=== PATIENT | male | born 1965 | race African-American/Black ===

== ENCOUNTER 2017-07-23 06:04 | Emergency (ER) | payer OTHER ==
[~2017-07-23] VITALS: Ht 180.3 cm; Wt 149.7 kg
[2017-07-23 06:08] VITALS: Ht 180.3 cm; Wt 149.7 kg
[2017-07-23] MEDS ORDERED: B/P PILL (06:10)
[2017-07-23] MEDS ORDERED: FLUID PILL (06:10)
[2017-07-23] MEDS ORDERED: CHOLESTEROL PILL (06:10)
[2017-07-23] MEDS ORDERED: KEFLEX500 MG PO (06:55)
[2017-07-23] MEDS ORDERED: IBUPROFEN800 MG PO (06:55)
[2017-07-23] MEDS ORDERED: BACTRIM DS TABL1 TAB PO (06:55)
[2017-07-23] MEDS ORDERED: ACETAMINOPHEN500 M1 PO (06:55)
[2017-07-23] MEDS ORDERED: FLORASTOR250 MG PO (06:55)
[2017-07-23 07:09] VITALS: BP 155/80
== END 2017-07-23 07:09 | disposition home or self-care (01) ==
LOC: D.ER 06:04
DX: K13.0 Diseases of lips (principal); I10 Essential (primary) hypertension; F17.200 Nicotine dependence, unspecified, uncomplicated

== ENCOUNTER 2018-07-30 23:31 | Emergency (ER) | payer OTHER ==
[~2018-07-30] VITALS: Ht 180.3 cm; Wt 186.4 kg
[~2018-07-30 23:31] MED LIST: ACETAMINOPHEN500 M1 PO; B/P PILL; BACTRIM DS TABL1 TAB PO; CHOLESTEROL PILL; FLORASTOR250 MG PO; FLUID PILL; IBUPROFEN800 MG PO; KEFLEX500 MG PO
[2018-07-30 23:37] VITALS: Ht 180.3 cm; Wt 186.4 kg
[2018-07-30] MEDS ORDERED: DICLOFENAC SODI50 MG PO (23:45)
[2018-07-31 00:35] VITALS: BP 141/90
== END 2018-07-31 00:36 | disposition home or self-care (01) ==
LOC: D.ER 23:31
DX: S63.502A Unspecified sprain of left wrist, initial encounter (principal); W19.XXXA Unspecified fall, initial encounter; Y93.11 Activity, swimming; E78.00 Pure hypercholesterolemia, unspecified; I10 Essential (primary) hypertension; F17.210 Nicotine dependence, cigarettes, uncomplicated